=== PATIENT | female | born 1970 | race African-American/Black ===

== ENCOUNTER → 2018-07-21 | Day surgery (SDC) | payer BC ==
[~2018-07-21] MED LIST: HYDROmorphone 2 MG/ML VIAL IV PRN; IV RINGERS,LACTATED 1000ML 1,000 ML IV SCH; LANS30CA PO; LIDOCAINE 1% PF 2 ML VIAL. ID PRN; MORPHINE SULFATE 4 MG/ML VIAL. IV PRN; ONDANSETRON PF 4 MG/2 ML VIAL. IV PRN; PROCHLORPERAZINE 10 MG/2 ML VIAL. IV PRN; RANI300C PO; TOPI50TA38 PO; fentaNYL PF VIAL 100 MCG/2 ML VIAL IV PRN
[2018-07-21 16:48] VITALS: BP 157/75
== END | disposition home or self-care (01) ==
LOC: ENDOS 14:34
PROVIDERS: ATTEND Internal Medicine Gastroenterology
DX: K44.9 Diaphragmatic hernia without obstruction or gangrene (principal); K29.50 Unspecified chronic gastritis without bleeding; K21.9 Gastro-esophageal reflux disease without esophagitis; Z91.041 Radiographic dye allergy status; M19.90 Unspecified osteoarthritis, unspecified site; G47.30 Sleep apnea, unspecified; Z82.49 Family history of ischemic heart disease and other diseases of the circulatory system; Z79.899 Other long term (current) drug therapy; Z90.710 Acquired absence of both cervix and uterus; Z98.890 Other specified postprocedural states
CPT/HCPCS: 43235

== ENCOUNTER → 2018-08-03 | Outpatient (CLI) | payer BC ==
[2018-07-21 16:48] VITALS: BP 157/75
[~2018-08-03] VITALS: Ht 172.7 cm; Wt 121.6 kg
[~2018-08-03] MED LIST changes: -HYDROmorphone 2 MG/ML VIAL IV PRN; -IV RINGERS,LACTATED 1000ML 1,000 ML IV SCH; -LIDOCAINE 1% PF 2 ML VIAL. ID PRN; -MORPHINE SULFATE 4 MG/ML VIAL. IV PRN; -ONDANSETRON PF 4 MG/2 ML VIAL. IV PRN; -PROCHLORPERAZINE 10 MG/2 ML VIAL. IV PRN; +SINCALIDE 2.4 MCG in IV NORMAL SALINE 50ML 30 ML IV ONE; -fentaNYL PF VIAL 100 MCG/2 ML VIAL IV PRN
--- NOTE | 2018-08-03 09:25 | RAD ---
EXAM: Abdomen sonogram. HISTORY: Epigastric pain. TECHNIQUE: Sonographic imaging of the abdomen was performed. COMPARISON: None. FINDINGS: The liver is enlarged. There is hepatic steatosis. No focal hepatic lesion is seen. The gallbladder is unremarkable. The common bile duct is minimally dilated for patient age, measuring 5.9 mm. The right kidney and pancreas are unremarkable. The inferior vena cava is patent. The aorta is not formally assessed. IMPRESSION: 1. Hepatomegaly and hepatic steatosis. 2. Minimally dilated common bile duct for patient age. Electronically signed by: Maegan Diaz MD (08/03/2018 9:22 AM) [email or web address]
--- NOTE | 2018-08-03 10:46 | RAD ---
EXAM: Nuclear hepatobiliary scan. HISTORY: Epigastric pain. TECHNIQUE: Following intravenous administration of 2.0 mCi Tc 99m Choletec, anterior images of the abdomen were obtained at five minute intervals through one hour. Subsequently, 2.4 mcg single live was administered and additional images to assess gallbladder ejection fraction were obtained. FINDINGS: There is prompt radiotracer uptake by the liver. No focal defect is seen. There is normal excretion into the biliary tree. The gallbladder is visualized within 10 minutes and there is free flow into the duodenum. The gallbladder ejection fraction is 74%. IMPRESSION: Normal radionuclide biliary scan. Electronically signed by: Maegan Diaz MD (08/03/2018 10:43 AM) [id number]
== END | disposition home or self-care (01) ==
LOC: US 07:21
PROVIDERS: ATTEND Internal Medicine Gastroenterology
DX: K76.0 Fatty (change of) liver, not elsewhere classified (principal); K83.8 Other specified diseases of biliary tract; R16.0 Hepatomegaly, not elsewhere classified
CPT/HCPCS: 76705; 78227; A9537; J2805